=== PATIENT | male | born 1975 | race Caucasian/White ===

== ENCOUNTER → 2016-11-10 | Outpatient (CLI) | payer BC ==
[2016-11-10 10:05] LABS: CHCM 34.4; HCT 43.1 % (39.0-53.0); HDW 2.71; HGB 14.6 gm/dL (13.0-17.5); MCH 32.6 pg (25.0-35.0); MCHC 33.8 g/dL (31.0-37.0); MCV 96.5 fL (80.0-100.0); RBC 4.47 m/uL (4.30-5.90); RDW 13.2 % (11.5-15.5); WBC 7.2 k/uL (3.8-10.6)
[2016-11-10 10:17] LABS: ALT 53 U/L (21-72); AST 27 U/L (17-59); Alkaline Phosphatase 69 U/L (38-126); Anion Gap 10 mmol/L; Blood Urea Nitrogen 14 mg/dL (9-20); Calcium 9.2 mg/dL (8.4-10.2); Carbon Dioxide 26 mmol/L (22-30); Chloride 110 mmol/L (98-107); Cholesterol 154 mg/dL (<200); Glucose 101 mg/dL (74-99); HDL Cholesterol 34 mg/dL (40-60); Non-African American GFR(MDRD) >60 (>60 ml/min/1.73 sqM); Potassium 4.7 mmol/L (3.5-5.1); Sodium 146 mmol/L (137-145); Total Bilirubin 0.5 mg/dL (0.2-1.3); Total Protein 7.4 g/dL (6.3-8.2); Triglycerides 173 mg/dL (<150)
== END | disposition home or self-care (01) ==
LOC: LABWHC1 09:43
PROVIDERS: ATTEND Family Medicine
DX: E78.2 Mixed hyperlipidemia (principal); I10 Essential (primary) hypertension
CPT/HCPCS: 36415; 80053; 80061; 85027

== ENCOUNTER 2019-03-29 10:24 | Emergency (ER) | payer BC ==
[2019-03-29 10:33] VITALS: RESP 18
--- NOTE | 2019-03-29 10:48 | ED ---
Head Injury HPI - General Chief complaint: Head Injury Stated complaint: HEAD INJURY, HIT WITH BASEBALL Time Seen by Provider: 03/29/19 10:34 Source: patient, RN notes reviewed Mode of arrival: ambulatory Limitations: no limitations - History of Present Illness Initial comments: 43-year-old male presents emergency Department with chief complaint of left sided head injury. Patient states that he was pitching softball states that he took a line drive back into his left ear. Patient states that he does have some moderate discomfort to the ER and there was some noted bleeding from a laceration. Patient states that he has a mild headache denies any dizziness, nausea, vomiting, blurred vision. 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 Patient has any focal weakness. Denies any chest or shortness breath. - Related Data Allergies/Adverse reactions: Allergies Allergy/AdvReac Type Severity Reaction Status Date / Time No Known Allergies Allergy Verified 03/29/19 10:33 Review of Systems ROS Statement: Those systems with pertinent positive or pertinent negative responses have been documented in the HPI. ROS Other: All systems not noted in ROS Statement are negative. Past Medical History Past Medical History: Hyperlipidemia, Hypertension History of Any Multi-Drug Resistant Organisms: None Reported Past Surgical History: Orthopedic Surgery Additional Past Surgical History / Comment(s): eye surgery Past Psychological History: No Psychological Hx Reported Smoking Status: Never smoker Past Alcohol Use History: Occasional Past Drug Use History: None Reported General Exam Limitations: no limitations General appearance: alert, in no apparent distress Head exam: Present: atraumatic, normocephalic, normal inspection Eye exam: Present: normal appearance, PERRL, EOMI. Absent: scleral icterus, conjunctival injection, periorbital swelling ENT exam: Present: normal oropharynx, mucous membranes moist, other (No mastoid tenderness no bony tenderness in the pre-recurrent region). Absent: normal exam (Swelling to the left ear noted, small superficial laceration. There is no extensive hematoma to left ear) Neck exam: Present: normal inspection, full ROM. Absent: tenderness, meningismus, lymphadenopathy Respiratory exam: Present: normal lung sounds bilaterally. Absent: respiratory distress, wheezes, rales, rhonchi, stridor Cardiovascular Exam: Present: regular rate, normal rhythm, normal heart sounds. Absent: systolic murmur, diastolic murmur, rubs, gallop, clicks Neurological exam: Present: alert, oriented X3, CN II-XII intact, reflexes normal. Absent: motor sensory deficit Skin exam: Present: warm, dry, intact, normal color. Absent: rash Course Vital Signs 03/29/19 10:30 Temperature 99.0 F Pulse Rate 114 H Respiratory 18 Rate Blood Pressure 159/92 O2 Sat by Pulse 99 Oximetry Medical Decision Making - Medical Decision Making 43-year-old male presented from for left ear, head injury. CT was obtained no acute abnormality and the left side. He does have a defect in the right scleral region which is from old injury. Patient tetanus is updated. Patient we discharged and return parameters were discussed. Disposition Clinical Impression: Laceration of left ear, Head injury Disposition: HOME SELF-CARE Condition: Stable Instructions (If sedation given, give patient instructions): Head Injury (ED) Additional Instructions: Please return to the Emergency Department if symptoms worsen or any other concerns. Is patient prescribed a controlled substance at d/c from ED?: No Referrals: Roberto Decker MD [Primary Care Provider] - 1-2 days Time of Disposition: 12:09
[2019-03-29] MEDS ORDERED: DIPH,PERTUS(ACELL)TETVAC-LF 0.5 ML VIAL IM ONE (10:49)
--- NOTE | 2019-03-29 12:00 | CT ---
EXAMINATION TYPE: CT brain wo con DATE OF EXAM: 03/29/2019 COMPARISON: NONE HISTORY: Head injurym, hit with baseball in right ear CT DLP: 1071.4 mGycm Automated exposure control for dose reduction was used. FINDINGS: Central structures are midline. There is no evidence of hydrocephalus. No acute focal lesion, mass ef fect or midline shift is seen. The right orbit is abnormal. There is a radiopaque foreign body. I do not see a normal lens. There ap pears to be a defect in the sclera anteriorly. There is no retroconal or intraconal abnormality. Visualized portions of the paranasal sinuses and mastoids are clear. IMPRESSION: 1. NO ACUTE INTRACRANIAL ABNORMALITY. 2. ABNORMAL APPEARANCE OF THE RIGHT ORBIT WITH A DEFECT IN THE SCLERA AND RADIOPAQUE BODY WITHIN THE GLOBE. THE NORMAL LENS IS NOT VISUALIZED. DIRECT VISUALIZATION IS SUGGESTED.
[2019-03-29 12:21] VITALS: BP 119/91; PULSE 100; TEMP 98.5
== END 2019-03-29 12:21 | disposition home or self-care (01) ==
LOC: EC 10:24
DX: S01.312A Laceration without foreign body of left ear, initial encounter (principal); S09.90XA Unspecified injury of head, initial encounter; H54.61 Unqualified visual loss, right eye, normal vision left eye; Z23 Encounter for immunization; W21.03XA Struck by baseball, initial encounter; Y93.89 Activity, other specified; Y92.89 Other specified places as the place of occurrence of the external cause
CPT/HCPCS: 70450; 90471; 90715; 99283

== ENCOUNTER 2020-09-19 16:34 | Inpatient (IN) | payer BC ==
[2020-09-19] MEDS ORDERED: LORazepam 2 MG/ML INJ IV STA (17:23)
[2020-09-19] MEDS ORDERED: ASPIRIN 81 MG PO STA (17:23)
[2020-09-19] MEDS ORDERED: SODIUM CHLORIDE 0.9% 1,000 ML IV STA (17:23)
--- NOTE | 2020-09-19 17:27 | ED ---
General Adult HPI - General Chief complaint: Neuro Symptoms/Deficit Stated complaint: hypertensive, arm numbness Time Seen by Provider: 09/19/20 17:12 Source: patient Mode of arrival: ambulatory Limitations: no limitations - History of Present Illness Initial comments: 45-year-old male patient presents to the emergency department today for evaluation of multiple symptoms. Patient states since Sunday he has been experiencing numbness across his chest down his bilateral arms. States he also feels like his tongue is numb and he has lost his taste. Patient states his blood pressures have been very elevated and his heart rate has been high. States he did go to the walk-in clinic on Sunday where they did an EKG and told that his heart was fast the day thought it may be due to anxiety. He was sent home from there. Patient states that he has had persistently high blood pressures throughout the weekend. States he feels that the numbness is wors ening. He denies any chest pain but states he is having some mid upper back pain. Denies any shortness of breath. Denies weakness to his extremities. Denies any recent head injury. States he did try taking an Ativan because he hasn't been sleeping it did not help. States he did test positive for COVID-19 6 weeks ago and had very mild illness with fevers. Patient denies any recent cough, abdominal pain, vomiting, diarrhea, constipation, back pain, numbness, tingling, dizziness, hematuria, dysuria, urinary urgency, urinary frequency, headache, visual changes, or any other complaints. - Related Data Home Medications Medication Instructions Recorded Confirmed Enalapril [Vasotec] 10 mg PO BID 09/19/20 09/19/20 Ketoconazole 2% Cream [Nizoral 2%] 1 applic TOPICAL DAILY 09/19/20 09/19/20 LORazepam [Ativan] 0.5 - 1 mg PO TID PRN 09/19/20 09/19/20 Multivitamins, Thera [Multivitamin 1 tab PO DAILY 09/19/20 09/19/20 (formulary)] Simvastatin [Zocor] 20 mg PO HS 09/19/20 09/19/20 Allergies Allergy/AdvReac Type Severity Reaction Status Date / Time No Known Allergies Allergy Verified 09/19/20 18:33 Review of Systems ROS Statement: Those systems with pertinent positive or pertinent negative responses have been documented in the HPI. ROS Other: All systems not noted in ROS Statement are negative. Past Medical History Past Medical History: Hyperlipidemia, Hypertension History of Any Multi-Drug Resistant Organisms: None Reported Past Surgical History: Orthopedic Surgery Additional Past Surgical History / Comment(s): eye surgery Past Psychological History: No Psychological Hx Reported Smoking Status: Former smoker Past Alcohol Use History: Occasional Past Drug Use History: None Reported General Exam Limitations: no limitations General appearance: alert, in no apparent distress, other (This is a well- developed, well-nourished adult male patient in no acute distress. Vital signs upon presentation are temperature 98.0F, pulse 142, respirations 18, blood pressure 160/94, pulse ox 98% on room air.) Eye exam: Present: normal appearance, PERRL (Left eye. There is traumatic injury to right eye), EOMI. Absent: scleral icterus, conjunctival injection, nystagmus, periorbital swelling Respiratory exam: Present: normal lung sounds bilaterally. Absent: respiratory distress, wheezes, rales, rhonchi, stridor Cardiovascular Exam: Present: normal rhythm, tachycardia, normal heart sounds. Absent: systolic murmur, diastolic murmur, rubs, gallop, clicks GI/Abdominal exam: Present: soft, normal bowel sounds. Absent: distended, tenderness, guarding, rebound, rigid Neurological exam: Present: alert, oriented X3, CN II-XII intact Expanded Speech: Present: fluid speech Cranial nerves: EOM's Intact: Normal, Tongue Deviation: Normal, Nystagmus: Normal Motor strength exam: RUE: 5, LUE: 5, RLE: 5, LLE: 5 Psychiatric exam: Present: normal affect Skin exam: Present: warm Course Vital Signs 09/19/20 09/19/20 09/19/20 16:39 17:06 17:30 Temperature 98 F Pulse Rate 142 H 120 H Pulse Rate [ Communications Technologist ] Respiratory 18 16 16 Rate Blood Pressure 160/94 165/111 O2 Sat by Pulse 98 95 Oximetry 09/19/20 09/19/20 09/19/20 18:00 18:30 18:59 Temperature Pulse Rate 123 H 114 H Pulse Rate [ 124 H Communications Technologist ] Respiratory 16 16 Rate Blood Pressure 156/105 157/111 O2 Sat by Pulse 95 95 Oximetry Medical Decision Making - Medical Decision Making 45 year-old male patient presented to the emergency department today for evaluation of paresthesia, elevated blood pressure, tachycardia. Physical examination is unremarkable. He is neurologically intact with no focal deficits. Labs reviewed and are unremarkable. Patient did have coronavirus 6 weeks ago did test negative today. Vital signs did reveal elevated blood pressure and tachycardia sustained throughout his visit. We did give Ativan for possible anxiety, and heart rate remained elevated even while patient was sleeping. Patient will be admitted to the hospital for cardiac monitoring we will also perform echo in the morning and consult cardiology. Patient is agreeable to this plan. - Lab Data Result diagrams: 09/19/20 17:36 09/19/20 17:36 Lab Results 09/19/20 09/19/20 09/19/20 Range/Units 17:36 17:36 17:36 WBC 9.9 (3.8-10.6) k/uL RBC 5.27 (4.30-5.90) m/uL Hgb 17.2 (13.0-17.5) gm/dL Hct 49.8 (39.0-53.0) % MCV 94.5 (80.0-100.0) fL MCH 32.6 (25.0-35.0) pg MCHC 34.5 (31.0-37.0) g/dL RDW 12.4 (11.5-15.5) % Plt Count 283 (150-450) k/uL MPV 6.8 Neutrophils % 59 % Lymphocytes % 31 % Monocytes % 5 % Eosinophils % 1 % Basophils % 0 % Neutrophils # 5.8 (1.3-7.7) k/uL Lymphocytes # 3.1 (1.0-4.8) k/uL Monocytes # 0.5 (0-1.0) k/uL Eosinophils # 0.1 (0-0.7) k/uL Basophils # 0.0 (0-0.2) k/uL PT 10.0 (9.0-12.0) sec INR 1.0 (<1.2) APTT 23.2 (22.0-30.0) sec D-Dimer <0.17 (<0.60) mg/L FEU Sodium 139 (137-145) mmol/L Potassium 4.1 (3.5-5.1) mmol/L Chloride 106 (98-107) mmol/L Carbon Dioxide 20 L (22-30) mmol/L Anion Gap 13 mmol/L BUN 18 (9-20) mg/dL Creatinine 0.93 (0.66-1.25) mg/dL Est GFR (CKD-EPI)AfAm >90 (>60 ml/min/1.73 sqM) Est GFR (CKD-EPI)NonAf >90 (>60 ml/min/1.73 sqM) Glucose 136 H (74-99) mg/dL Calcium 10.0 (8.4-10.2) mg/dL Magnesium 2.0 (1.6-2.3) mg/dL Total Bilirubin 0.7 (0.2-1.3) mg/dL AST 36 (17-59) U/L ALT 41 (4-49) U/L Alkaline Phosphatase 53 (38-126) U/L Troponin I (0.000-0.034) ng/mL Total Protein 8.7 H (6.3-8.2) g/dL Albumin 5.0 (3.5-5.0) g/dL TSH (0.465-4.680) mIU/L Coronavirus (PCR) (Not Detectd) 09/19/20 09/19/20 09/19/20 Range/Units 17:36 17:36 17:36 WBC (3.8-10.6) k/uL RBC (4.30-5.90) m/uL Hgb (13.0-17.5) gm/dL Hct (39.0-53.0) % MCV (80.0-100.0) fL MCH (25.0-35.0) pg MCHC (31.0-37.0) g/dL RDW (11.5-15.5) % Plt Count (150-450) k/uL MPV Neutrophils % % Lymphocytes % % Monocytes % % Eosinophils % % Basophils % % Neutrophils # (1.3-7.7) k/uL Lymphocytes # (1.0-4.8) k/uL Monocytes # (0-1.0) k/uL Eosinophils # (0-0.7) k/uL Basophils # (0-0.2) k/uL PT (9.0-12.0) sec INR (<1.2) APTT (22.0-30.0) sec D-Dimer (<0.60) mg/L FEU Sodium (137-145) mmol/L Potassium (3.5-5.1) mmol/L Chloride (98-107) mmol/L Carbon Dioxide (22-30) mmol/L Anion Gap mmol/L BUN (9-20) mg/dL Creatinine (0.66-1.25) mg/dL Est GFR (CKD-EPI)AfAm (>60 ml/min/1.73 sqM) Est GFR (CKD-EPI)NonAf (>60 ml/min/1.73 sqM) Glucose (74-99) mg/dL Calcium (8.4-10.2) mg/dL Magnesium (1.6-2.3) mg/dL Total Bilirubin (0.2-1.3) mg/dL AST (17-59) U/L ALT (4-49) U/L Alkaline Phosphatase (38-126) U/L Troponin I <0.012 (0.000-0.034) ng/mL Total Protein (6.3-8.2) g/dL Albumin (3.5-5.0) g/dL TSH 3.710 (0.465-4.680) mIU/L Coronavirus (PCR) Not Detected (Not Detectd) - Radiology Data Radiology results: report reviewed, image reviewed 2 view xray of the chest was obtained. Report was reviewed in its entirety. Impression by Dr. Whitman shows normal chest. Normal heart. Disposition Clinical Impression: Tachycardia Disposition: ADMITTED IP TO THIS [facility] Condition: Serious Referrals: Roberto Decker MD [Primary Care Provider] - 1-2 days Decision to Admit Reason: Admit from EC Decision Date: 09/19/20 Decision Time: 19:24
[2020-09-19 17:52] LABS: Basophils % (A) 0 %; Eosinophils # (A) 0.1 k/uL (0-0.7); Eosinophils % (A) 1 %; HCT 49.8 % (39.0-53.0); HGB 17.2 gm/dL (13.0-17.5); Lymphocytes # (A) 3.1 k/uL (1.0-4.8); Lymphocytes % (A) 31 %; MCH 32.6 pg (25.0-35.0); MCHC 34.5 g/dL (31.0-37.0); MCV 94.5 fL (80.0-100.0); Mean Platelet Volume 6.8; Monocytes # (A) 0.5 k/uL (0-1.0); Monocytes % (A) 5 %; Neutrophils # (A) 5.8 k/uL (1.3-7.7); Neutrophils % (A) 59 %; Platelet Count 283 k/uL (150-450); RBC 5.27 m/uL (4.30-5.90); RDW 12.4 % (11.5-15.5); WBC 9.9 k/uL (3.8-10.6)
--- NOTE | 2020-09-19 17:57 | XR ---
EXAMINATION TYPE: XR chest 2V DATE OF EXAM: 09/19/2020 COMPARISON: NONE HISTORY: Chest pain TECHNIQUE: 2 views FINDINGS: Heart and mediastinum are normal. Lungs are clear. Diaphragm is normal. Bony thorax appears normal. IMPRESSION: Normal chest. Normal heart.
[2020-09-19 18:01] LABS: ALT 41 U/L (4-49); AST 36 U/L (17-59); African American GFR (CKD) >90 (>60 ml/min/1.73 sqM); Alkaline Phosphatase 53 U/L (38-126); Anion Gap 13 mmol/L; Blood Urea Nitrogen 18 mg/dL (9-20); Carbon Dioxide 20 mmol/L (22-30); Chloride 106 mmol/L (98-107); Glucose 136 mg/dL (74-99); Non-African American GFR(CKD) >90 (>60 ml/min/1.73 sqM); Potassium 4.1 mmol/L (3.5-5.1); Sodium 139 mmol/L (137-145); Total Bilirubin 0.7 mg/dL (0.2-1.3); Total Protein 8.7 g/dL (6.3-8.2)
[2020-09-19 18:06] LABS: D-Dimer <0.17 mg/L FEU (<0.60); Partial Thromboplastin Time 23.2 sec (22.0-30.0)
[2020-09-19] MEDS ORDERED: LORazepam 1 MG TAB PO PRN (19:22)
[2020-09-19] MEDS ORDERED: NALOXONE 0.4 MG/ML 1 ML VIAL IV PRN (19:22)
[2020-09-19] MEDS: ACETAMINOPHEN TAB 325 MG TAB PO PRN (21:39)
[2020-09-20] MEDS: SODIUM CHLORIDE 0.9% 1,000 ML IV SCH ×2 (01:33→09:27)
[2020-09-20] MEDS ORDERED: ASPIRIN 325 MG TAB PO SCH (09:00)
[2020-09-20] MEDS ORDERED: amLODIPine 5 MG TAB PO SCH (09:00)
[2020-09-20] MEDS: lisinopriL 20 MG TAB PO SCH ×2 (09:21→21:42)
[2020-09-20] MEDS: ACETAMINOPHEN TAB 325 MG TAB PO PRN (09:27)
[2020-09-20] MEDS: ASPIRIN 81 MG PO SCH (09:27)
[2020-09-20] MEDS: METOPROLOL TARTRATE 25 MG TAB PO SCH ×2 (09:27→21:42)
--- NOTE | 2020-09-20 10:08 | P.CRDCN ---
<Vaishali Solorio - Last Filed: 09/20/20 10:04> History of Present Illness Consult date: 09/20/20 History of present illness: CHIEF COMPLAINT: Tachycardia HISTORY OF PRESENT ILLNESS: This is a 45-year old male with a past medical history significant for hypertension and hyperlipidemia. 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 We have been asked to see the patient in consultation for tachycardia. Patient examined this morning at the bedside in the emergency room. Patient reports he was diagnosed with covert about 6 weeks ago. He states over the past week he has been feeling bilateral leg heaviness, bilateral arm numbness, and a loss of sense of taste. He also reports having a rash on his chest that started about 10 days ago. The patient went to urgent care to be evaluated. He was told that he might have shingles however he was not prescribed any treatment for it. An EKG was completed at the urgent care which revealed sinus tachycardia. He was told this might be related to his anxiety and he was prescribed antianxiety medications. The patient states since going to urgent care he has been checking his blood pressure and heart rate at home. He states his blood pressure has been elevated with a systolic in the 160s and his heart rate has continued to be over 100 and sometimes even into the 140s despite taking the anxiety medications so he decided to come to the emergency room for further evaluation. At the time of my exam this morning, the patient denies chest pain or pressure. He denies shortness of breath. He continues to report bilateral arm numbness. He denies feeling palpitations. DIAGNOSTICS: EKG reveals sinus tachycardia. No signs of acute ischemia Chest xray negative for acute process Laboratory data: W BC 9.9. Hemoglobin 17.2. Platelet count 283. D-dimer 0.17. Sodium 139. Potassium 4.1. BUN 18. Creatinine 0.93. Magnesium 2.0. Troponin negative 1. TSH 3.710. Current home cardiac medications include Zocor 20 mg daily and Vasotec 10 mg twice a day REVIEW OF SYSTEMS: At the time of my exam: CONSTITUTIONAL: Denies fever or chills. HEENT: Denies blurred vision, vision changes, or eye pain. Denies hemoptysis CARDIOVASCULAR: Denies chest pain, orthopnea, PND or palpitations RESPIRATORY: No shortness of breath. GASTROINTESTINAL: Denies abdominal pain. Denies nausea or vomiting. HEMATOLOGIC: Denies bleeding disorders. GENITOURINARY: Denies any blood in urine. SKIN: Denies pruitis. Denies rash. PHYSICAL EXAM: VITAL SIGNS: Reviewed. GENERAL: Well-developed in no acute distress. HEENT: Head is normocephalic. Pupils are equal, round. Sclerae anicteric. Mucous membranes of the mouth are moist. Neck supple. No JVD or thyromegaly LUNGS: Respirations even and unlabored. Lungs essentially clear to auscultation bilaterally. HEART: Regular rate and rhythm. S1 and S2 heard. ABDOMEN: Soft. Nondistended. Nontender. EXTREMITIES: Normal range of motion. No clubbing or cyanosis. Peripheral pulses intact. No lower extremity edema NEUROLOGIC: Awake and alert. Oriented x 3. ASSESSMENT: Tachycardia Hypertension, uncontrolled Hyperlipidemia Possible recent diagnosis of shingles Symptoms of bilateral arm numbness and bilateral leg heaviness Anxiety History of coronavirus, 6 weeks ago PLAN: Resume home cardiac medications Begin metoprolol 25 mg twice a day Begin Norvasc 5 mg daily Continue telemetry monitoring Continue to monitor blood pressure Obtain 2-D echo to assess cardiac structure and function Further recommendations pending patient's course Nurse practitioner note has been reviewed by physician. Signing provider agrees with the documented findings, assessment, and plan of care. Past Medical History Past Medical History: Hyperlipidemia, Hypertension History of Any Multi-Drug Resistant Organisms: None Reported Past Surgical History: Orthopedic Surgery Additional Past Surgical History / Comment(s): eye surgery Past Psychological History: No Psychological Hx Reported Smoking Status: Former smoker Past Alcohol Use History: Occasional Past Drug Use History: None Reported Medications and Allergies Home Medications Medication Instructions Recorded Confirmed Type Enalapril [Vasotec] 10 mg PO BID 09/19/20 09/19/20 History Ketoconazole 2% Cream [Nizoral 2%] 1 applic TOPICAL DAILY 09/19/20 09/19/20 History LORazepam [Ativan] 0.5 - 1 mg PO TID PRN 09/19/20 09/19/20 History Multivitamins, Thera [Multivitamin 1 tab PO DAILY 09/19/20 09/19/20 History (formulary)] Simvastatin [Zocor] 20 mg PO HS 09/19/20 09/19/20 History Allergies Allergy/AdvReac Type Severity Reaction Status Date / Time No Known Allergies Allergy Verified 09/19/20 18:33 Physical Exam Vitals: Vital Signs Temp Pulse Pulse Resp BP Pulse Ox 09/20/20 06:51 97.4 F L 104 H 18 164/119 98 09/20/20 05:24 89 18 09/20/20 01:40 97.0 F L 101 H 18 151/115 97 09/19/20 23:30 108 H 18 152/106 98 09/19/20 20:00 115 H 18 157/126 97 09/19/20 19:30 125 H 16 159/106 95 09/19/20 19:00 120 H 16 151/102 97 09/19/20 18:59 124 H 09/19/20 18:30 114 H 16 157/111 95 09/19/20 18:00 123 H 16 156/105 95 09/19/20 17:30 120 H 16 165/111 95 09/19/20 17:06 16 09/19/20 16:39 98 F 142 H 18 160/94 98 Intake and Output 09/19/20 09/20/20 09/20/20 22:59 06:59 14:59 Other: Weight 96.162 kg Results 09/19/20 17:36 09/19/20 17:36 Cardiac Enzymes 09/19/20 09/19/20 Range/Units 17:36 17:36 AST 36 (17-59) U/L Troponin I <0.012 (0.000-0.034) ng/mL Coagulation 09/19/20 Range/Units 17:36 PT 10.0 (9.0-12.0) sec APTT 23.2 (22.0-30.0) sec CBC 09/19/20 Range/Units 17:36 WBC 9.9 (3.8-10.6) k/uL RBC 5.27 (4.30-5.90) m/uL Hgb 17.2 (13.0-17.5) gm/dL Hct 49.8 (39.0-53.0) % Plt Count 283 (150-450) k/uL Comprehensive Metabolic Panel 09/19/20 Range/Units 17:36 Sodium 139 (137-145) mmol/L Potassium 4.1 (3.5-5.1) mmol/L Chloride 106 (98-107) mmol/L Carbon Dioxide 20 L (22-30) mmol/L BUN 18 (9-20) mg/dL Creatinine 0.93 (0.66-1.25) mg/dL Glucose 136 H (74-99) mg/dL Calcium 10.0 (8.4-10.2) mg/dL AST 36 (17-59) U/L ALT 41 (4-49) U/L Alkaline Phosphatase 53 (38-126) U/L Total Protein 8.7 H (6.3-8.2) g/dL Albumin 5.0 (3.5-5.0) g/dL Current Medications Generic Name Dose Route Start Last Admin Trade Name Freq PRN Reason Stop Dose Admin Acetaminophen 650 mg 09/19/20 21:33 09/20/20 09:27 Acetaminophen Tab 325 Mg Tab PO 650 mg Q6HR PRN Administration Fever and/ or Pain Amlodipine Besylate 5 mg 09/20/20 09:00 09/20/20 09:27 Amlodipine 5 Mg Tab PO 5 mg DAILY NATHAN Administration Aspirin 81 mg 09/20/20 09:00 09/20/20 09:27 Aspirin 81 Mg PO 81 mg DAILY NATHAN Administration Atorvastatin Calcium 10 mg 09/20/20 21:00 Atorvastatin 10 Mg Tab PO HS NATHAN Sodium Chloride 1,000 mls @ 80 mls/hr 09/19/20 19:30 09/20/20 09:27 Saline 0.9% IV 80 mls/hr .[id number] NATHAN Administration Lisinopril 20 mg 09/20/20 09:00 09/20/20 09:21 Lisinopril 20 Mg Tab PO 20 mg BID NATHAN Administration Lorazepam 1 mg 09/19/20 19:22 09/20/20 01:32 Lorazepam 1 Mg Tab PO 1 mg Q6HR PRN Administration Anxiety Metoprolol Tartrate 25 mg 09/20/20 09:00 09/20/20 09:27 Metoprolol Tartrate 25 Mg Tab PO 25 mg BID NATHAN Administration Naloxone HCl 0.2 mg 09/19/20 19:22 Naloxone 0.4 Mg/Ml 1 Ml Vial IV Q2M PRN Opioid Reversal Intake and Output 09/19/20 09/20/20 09/20/20 22:59 06:59 14:59 Other: Weight 96.162 kg 09/19/20 17:36 09/19/20 17:36 <Khai Loza - Last Filed: 09/20/20 17:41> History of Present Illness History of present illness: Patient was sinus tachycardia as well as hypertension over last few weeks. Suspect mainly related to pain and anxiety. Patient has been having back pain with bilateral numbness and tingling in both arms and legs. Additional recent diagnosis of coronavirus approximately 6 weeks ago. Symptoms may be related to a herniated disc. Patient on home enalapril. Added metoprolol and Norvasc. 2- D echo reviewed with normal left ventricular function. D-dimer noted to be normal. Hypertension likely is somewhat exacerbated by NSAIDs however patient additionally in a fair amount of back pain and has been unable to sleep. Ideally better control on blood pressure however blood pressure management may be titrated outpatient if diastolic pressure better controlled. Khai Loza D.O. Physical Exam Vitals: Vital Signs Temp Pulse Pulse Resp BP BP Pulse Ox 09/20/20 15:00 97.9 F 100 16 159/119 96 09/20/20 09:00 96.8 F L 114 H 16 157/110 97 09/20/20 06:51 97.4 F L 104 H 18 164/119 98 09/20/20 05:24 89 18 09/20/20 01:40 97.0 F L 101 H 18 151/115 97 09/19/20 23:30 108 H 18 152/106 98 09/19/20 20:00 115 H 18 157/126 97 09/19/20 19:30 125 H 16 159/106 95 09/19/20 19:00 120 H 16 151/102 97 09/19/20 18:59 124 H 09/19/20 18:30 114 H 16 157/111 95 09/19/20 18:00 123 H 16 156/105 95 Intake and Output 09/20/20 09/20/20 09/20/20 06:59 14:59 22:59 Other: # Voids 2 2 Weight 96.162 kg Results 09/19/20 17:36 09/19/20 17:36 Cardiac Enzymes 09/19/20 09/19/20 Range/Units 17:36 17:36 AST 36 (17-59) U/L Troponin I <0.012 (0.000-0.034) ng/mL Coagulation 09/19/20 Range/Units 17:36 PT 10.0 (9.0-12.0) sec APTT 23.2 (22.0-30.0) sec CBC 09/19/20 Range/Units 17:36 WBC 9.9 (3.8-10.6) k/uL RBC 5.27 (4.30-5.90) m/uL Hgb 17.2 (13.0-17.5) gm/dL Hct 49.8 (39.0-53.0) % Plt Count 283 (150-450) k/uL Comprehensive Metabolic Panel 09/19/20 Range/Units 17:36 Sodium 139 (137-145) mmol/L Potassium 4.1 (3.5-5.1) mmol/L Chloride 106 (98-107) mmol/L Carbon Dioxide 20 L (22-30) mmol/L BUN 18 (9-20) mg/dL Creatinine 0.93 (0.66-1.25) mg/dL Glucose 136 H (74-99) mg/dL Calcium 10.0 (8.4-10.2) mg/dL AST 36 (17-59) U/L ALT 41 (4-49) U/L Alkaline Phosphatase 53 (38-126) U/L Total Protein 8.7 H (6.3-8.2) g/dL Albumin 5.0 (3.5-5.0) g/dL Current Medications Generic Name Dose Route Start Last Admin Trade Name Freq PRN Reason Stop Dose Admin Acetaminophen 650 mg 09/19/20 21:33 09/20/20 09:27 Acetaminophen Tab 325 Mg Tab PO 650 mg Q6HR PRN Administration Fever and/ or Pain Amlodipine Besylate 10 mg 09/21/20 09:00 Amlodipine 10 Mg Tab PO DAILY [facility] Aspirin 81 mg 09/20/20 09:00 09/20/20 09:27 Aspirin 81 Mg PO 81 mg DAILY NATHAN Administration Atorvastatin Calcium 10 mg 09/20/20 21:00 Atorvastatin 10 Mg Tab PO HS [facility] Clotrimazole 1 applic 09/21/20 09:00 Clotrimazole 1% Cream 15 Gm Tube TOPICAL DAILY [facility] Sodium Chloride 1,000 mls @ 80 mls/hr 09/19/20 19:30 09/20/20 09:27 Saline 0.9% IV 80 mls/hr .[id number] NATHAN Administration Lisinopril 20 mg 09/20/20 09:00 09/20/20 09:21 Lisinopril 20 Mg Tab PO 20 mg BID NATHAN Administration Lorazepam 1 mg 09/19/20 19:22 09/20/20 01:32 Lorazepam 1 Mg Tab PO 1 mg Q6HR PRN Administration Anxiety Metoprolol Tartrate 25 mg 09/20/20 09:00 09/20/20 09:27 Metoprolol Tartrate 25 Mg Tab PO 25 mg BID NATHAN Administration Multivitamins 1 each 09/21/20 09:00 Multivitamins, Thera 1 Each Tab PO DAILY NATHAN Naloxone HCl 0.2 mg 09/19/20 19:22 Naloxone 0.4 Mg/Ml 1 Ml Vial IV Q2M PRN Opioid Reversal Intake and Output 09/20/20 09/20/20 09/20/20 06:59 14:59 22:59 Other: # Voids 2 2 Weight 96.162 kg Patient Weight 09/21/20 06:59 Weight 96.162 kg 09/19/20 17:36 09/19/20 17:36
--- NOTE | 2020-09-20 11:53 | ECHOF ---
Referral Reason:tachycardia MEASUREMENTS -------- HEIGHT: 170.2 cm WEIGHT: 96.2 kg BP: 164/119 RVIDd: 2.8 cm (< 3.3) IVSd: 1.0 cm (0.6 - 1.1) LVIDd: 3.0 cm (3.9 - 5.3) LVPWd: 1.1 cm (0.6 - 1.1) IVSs: 1.7 cm LVIDs: 1.9 cm LVPWs: 1.6 cm LA Diam: 3.1 cm (2.7 - 3.8) LAESV Index (A-L): 15.11 ml/m Ao Diam: 2.9 cm (2.0 - 3.7) AV Cusp: 2.2 cm (1.5 - 2.6) MV EXCURSION: 12.690 mm (> 18.000) MV EF SLOPE: 199 mm/s (70 - 150) EPSS: 0.2 cm HUDSON: 452 ms AVC: 337 ms MV E Butch: 0.90 m/s MV DecT: 117 ms MV A Butch: 0.93 m/s MV E/A Ratio: 0.97 FINDINGS -------- Resting tachycardia (HR>100bpm). This was a technically adequate study. The left ventricular size is normal. There is borderline concentric left ventricular hypertrophy. Overall left ventricular systolic function is normal with, an EF between 60 - 65 %. The right ventricle is normal in size. Normal LA size by volume 22+/-6 ml/m2. The right atrium is normal in size. The aortic valve is trileaflet and appears structurally normal. The mitral valve is normal. The tricuspid valve appears structurally normal. Trace/mild (physiologic) pulmonic regurgitation. The aortic root size is normal. Normal inferior vena cava with normal inspiratory collapse consistent with estimated right atrial pre ssure of 5 mmHg. There is no pericardial effusion. CONCLUSIONS -------- 1. The left ventricular size is normal. 2. There is borderline concentric left ventricular hypertrophy. 3. Overall left ventricular systolic function is normal with, an EF between 60 - 65 %. 4. Trace/mild (physiologic) pulmonic regurgitation. MANAGER REPORTING: Dorina Mcgregor RDCS
--- NOTE | 2020-09-20 15:38 | XR ---
EXAMINATION TYPE: XR cervical spine w flex/ext DATE OF EXAM: 09/20/2020 COMPARISON: NONE HISTORY: 45-year-old male weakness in the arms and legs TECHNIQUE: 7 views FINDINGS: No predental space widening or prevertebral soft tissue swelling. Preserved alignment of the cervical spine. Moderate degenerative disc disease C5-C7 levels. Multilevel facet and uncovertebral joint art hropathy. On the left, there is moderate bony neuroforaminal narrowing at C5-C6 and mild at C3-C4. On the right, there is moderate bony neuroforaminal narrowing at C3-C4. Mild C7-T1. Normal odontoid view. On flexion and extension, no dynamic subluxation is seen. IMPRESSION: Moderate spondylotic change with preserved alignment. No dynamic subluxation on flexion-extension chito adam
--- NOTE | 2020-09-20 15:40 | XR ---
EXAMINATION TYPE: XR thoracic spine 3 views DATE OF EXAM: 09/20/2020 COMPARISON: NONE HISTORY: 45-year-old male weakness in the arms and legs FINDINGS: Very gentle levoconvex curvature of the thoracic spine. 11 rib-bearing thoracic vertebral bodies. All pedicles are visualized. Mild degenerative disc disease thoracolumbar junction and upper lumbar spin e. Vertebral body heights are preserved. Alignment is maintained. IMPRESSION: 11 rib-bearing thoracic vertebral bodies counted. Mild degenerative disc disease thoracolumbar juncti on and upper lumbar spine. No vertebral compression collapse or malalignment.
[2020-09-20] MEDS ORDERED: amLODIPine 5 MG TAB PO STA (16:57)
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
[2020-09-20] MEDS: ATORVASTATIN 10 MG TAB PO SCH (21:42)
[2020-09-20] MEDS: valACYclovir HCL 1,000 MG TABLET PO SCH (21:42)
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
[2020-09-21 05:49] LABS: Hemoglobin A1C 6.7 % (4.0-6.0)
[2020-09-21 07:21] LABS: Folate, Serum >24.0 ng/mL
[2020-09-21] MEDS: valACYclovir HCL 1,000 MG TABLET PO SCH ×3 (09:05→21:37)
[2020-09-21] MEDS: METOPROLOL TARTRATE 25 MG TAB PO SCH ×3 (09:05→21:37)
[2020-09-21] MEDS: MULTIVITAMINS, THERA 1 EACH TAB PO SCH (09:05)
[2020-09-21] MEDS: ASPIRIN 81 MG PO SCH (09:05)
[2020-09-21] MEDS: lisinopriL 20 MG TAB PO SCH ×2 (09:05→21:37)
[2020-09-21] MEDS: amLODIPine 10 MG TAB PO SCH (09:05)
[2020-09-21] MEDS: CLOTRIMAZOLE 1% CREAM 15 GM TUBE TOPICAL SCH (09:05)
--- NOTE | 2020-09-21 11:58 | CT ---
EXAMINATION TYPE: CT cervical spine wo con DATE OF EXAM: 09/21/2020 COMPARISON: Cervical spine x-ray from yesterday HISTORY: Upper extremity radiculopathy for order. Weakness in arms and legs. CT DLP: 578.1 mGycm. Automated Exposure Control for Dose Reduction was Utilized. TECHNIQUE: CT scan of the cervical spine is obtained without contrast, axial images are obtained, sa gittal and coronal reformatted images are also reviewed. FINDINGS: Cervical spine is visualized in its entirety from C1 through upper thoracic levels, there i s redemonstration of slight grade 1 retrolisthesis C3 on C4 is slightly more prominent grade 1 retrol isthesis C5 on C6. Coronal images redemonstrate levoconvex scoliosis centered in the upper thoracic spine. Prevertebral soft tissue appears within normal limits. The C1-C2 articulation is within michael l limits on the coronal images. No acute fracture or dislocation is seen. Vertebral body heights are maintained. Moderate disc space narrowing with moderate anterior and posterior spurring C5-C6 level i s redemonstrated. Axial images at C2-C3 level shows a right paracentral/foraminal spur disc complex effacing anterolate ral thecal sac along with uncovertebral facet degenerative changes causing moderate right-sided neura l foraminal narrowing. Axial images at C3-C4 level show posterior right paracentral spur disc complex effacing anterolateral thecal sac along with bilateral uncovertebral facet degenerative changes causing mild bilateral neur al foraminal narrowing. Axial images at C4-C5 levels show more prominent left-sided uncovertebral facet degenerative changes causing moderate left-sided neural foraminal narrowing. Axial images at C5-C6 level shows spondylolisthesis with posterior spurring effacing the anterior the jessica sac and mild left greater than right bilateral neural foraminal narrowing due to uncovertebral an d facet spurring. Axial images at C6-C7 level and C7-T1 level are within normal limits. Thyroid gland is within normal limits. Lung apices show no pneumothorax. Few prominent but subcentime ter lymph nodes throughout the neck are incidentally noted. IMPRESSION: There is multilevel spondylolisthesis and degenerative changes in the cervical spine as d etailed above.
--- NOTE | 2020-09-21 14:05 | P.CON ---
Consult Note - . Consult date: 09/21/20 Assessment/Plan:: This is a 45-year-old gentleman with recent history ofcovid 19. The patient started to feel numbness in the anterior chest area on the left side and in both arms and also weakness in both legs as he states. The patient has mild upper b ack pain however his main complaint is numbness and weakness in the extremities and not really at the initial. By physical exam he is alert oriented 3 in no apparent distress. Muscle strength exam the upper and lower extremities is within normal limits. He has a healing rash on the left anterior chest area and crashing the groin area bilaterally however no vesicles or crusts are appreciated. The patient does not complain of pain really. If there is any mild pain in the upper back area ibuprofen would be good enough. The patient's main complaints are neurological: The patient will follow up with neurology service for that. I thank you for the consultation.
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
[2020-09-21] MEDS: IBUPROFEN 600 MG TAB PO PRN ×2 (16:18→21:43)
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
[2020-09-21] MEDS: ATORVASTATIN 10 MG TAB PO SCH (21:37)
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
[2020-09-22] MEDS: lisinopriL 20 MG TAB PO SCH ×2 (09:10→21:49)
[2020-09-22] MEDS: METOPROLOL TARTRATE 25 MG TAB PO SCH ×3 (09:10→21:49)
[2020-09-22] MEDS: amLODIPine 10 MG TAB PO SCH (09:10)
[2020-09-22] MEDS: MULTIVITAMINS, THERA 1 EACH TAB PO SCH (09:10)
[2020-09-22] MEDS: ASPIRIN 81 MG PO SCH (09:10)
[2020-09-22] MEDS: valACYclovir HCL 1,000 MG TABLET PO SCH ×3 (09:10→21:49)
[2020-09-22] MEDS: CLOTRIMAZOLE 1% CREAM 15 GM TUBE TOPICAL SCH (09:11)
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
--- NOTE | 2020-09-22 17:48 | MR ---
EXAMINATION TYPE: MR cervical spine wo/w con DATE OF EXAM: 09/22/2020 COMPARISON: None HISTORY: numbness and tingling in extremeties CONTRAST: Standard multiplanar, multisequence MRI departmental protocol utilizing 9.5 mL intravenous Gadavist g adolinium contrast. Cervical vertebra have normal alignment. Disc spaces are fairly well-maintained. There is small poste rior disc bulging at C5-6 and C6-7 without significant impingement on the spinal canal. The narrowest point of the spinal canal is C5-6 and measures 8.7 mm. Cervical spinal cord has normal signal patter n. There is no edema. Brainstem appears intact. There is no paraspinal mass. There is some uncoverteb ral spurring and neural foraminal impingement on the right side at C5-6. The contrast images show no pathologic enhancement. IMPRESSION: Mild posterior disc bulging at C5-6 and C6-7. Mild right side C5-6 neural foraminal impingement. No f racture. No spinal stenosis.
--- NOTE | 2020-09-22 17:52 | MR ---
EXAMINATION TYPE: MR brain wo con DATE OF EXAM: 09/22/2020 COMPARISON: None HISTORY: numbness and tingling in extremeties Multiplanar multiecho imaging of the brain was performed without contrast. Ventricles have normal size. There is no mass effect nor midline shift. There is no sign of intracran ial hemorrhage. The calvarium is intact. Brainstem is intact. There is no evidence of cortical infarc t. There is no evidence of posterior fossa mass. Corpus callosum appears normal. Optic chiasm appears normal. Gonsales-white matter structures have fairly normal signal pattern. There is no evidence of cere bral edema. IMPRESSION: Negative MR scan of the brain.
[2020-09-22] MEDS: ATORVASTATIN 10 MG TAB PO SCH (21:49)
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
[2020-09-23] MEDS: CLOTRIMAZOLE 1% CREAM 15 GM TUBE TOPICAL SCH (08:53)
[2020-09-23] MEDS: lisinopriL 20 MG TAB PO SCH ×2 (09:08→21:10)
[2020-09-23] MEDS: MULTIVITAMINS, THERA 1 EACH TAB PO SCH (09:08)
[2020-09-23] MEDS: METOPROLOL TARTRATE 25 MG TAB PO SCH ×3 (09:08→21:10)
[2020-09-23] MEDS: amLODIPine 10 MG TAB PO SCH (09:08)
[2020-09-23] MEDS: valACYclovir HCL 1,000 MG TABLET PO SCH ×3 (09:09→22:01)
[2020-09-23] MEDS: ASPIRIN 81 MG PO SCH (09:10)
[2020-09-23 11:45] LABS: Total Protein,CSF 270 mg/dL (12-60)
[2020-09-23 12:45] LABS: Appearance,CSF Clear; CSF Tube Number 2
[2020-09-23 12:47] LABS: Red Blood Cell,CSF 9 u/L (0-10)
[2020-09-23 12:48] LABS: Nucleated Cells, CSF 4 u/L (0-5)
--- NOTE | 2020-09-23 12:56 | FL ---
EXAMINATION TYPE: FL guided lumbar puncture LP DATE OF EXAM: 09/23/2020 CLINICAL HISTORY: Persistent weakness and numbness into extremities after recent covid infection. TECHNIQUE: Fluoroscopic assisted lumbar puncture for CSF. Total 3 minutes fluoroscopic time utilized. Single spot image is saved. COMPARISON: None. FINDINGS: Fluoroscopic guidance was provided during lumbar puncture procedure performed by myself. V ital signs monitored before during and after procedure. Procedure explained to patient. Benefits alte rnatives and risks were discussed including possibility of spinal headache. Informed consent was obta ined. Overlying skin is cleansed with Betadine. Lidocaine is used as anesthetic. Several attempts were made under fluoroscopic guidance to access spinal canal at a few levels. There is finally successful acce ss at the L3-L4 level using paraspinal approach. There is poor flow of clear CSF and ordering physician requires or request at least 10 to 15 cc of CS F. Several attempts at repositioning and coughing were unsuccessful in improved CSF flow. At this poi nt, tiny amount of bleeding was noted with repositioning. There was finally improved CSF flow with tu rning patient on side. Successful amount of fluid was collected and the needle was withdrawn. Post pr ocedure instructions completed. Patient tolerated procedure well without any immediate complication. Patient was sent back to floor f or further monitoring. IMPRESSION: As Above.
--- NOTE | 2020-09-23 13:31 | P.PN ---
Subjective Progress Note Date: 09/23/20 The patient was seen at bedside and he stated he feels somewhat better today compared to to his initial presentation he feels like his sensation in the hand he felt he had more sensation that that he noticed yesterday compared to his initial presentation. Otherwise he denies any new weakness, any worsening of his numbness tingling and the hands or feet, denies any diplopia, any slurring the speech, any difficulty swallowing. Patient just got back from a lumbar puncture procedure. Patient state stated that about 2-3 weeks ago over the left axilla and the left the lateral side of his chest which was then healing. Then in the last 1-1-1/2 weeks ago he started having numbness of the the hands then later it was a atrophy bilaterally. He does feel like his hands are and feet are weak compared to what he usually feels like. Objective - Vital Signs Vital signs: Vital Signs Temp 97.5 F L 09/23/20 03:00 Pulse 106 H 09/23/20 12:15 Resp 18 09/23/20 12:15 BP 130/92 09/23/20 12:15 Pulse Ox 95 09/23/20 12:15 Intake & Output 09/22/20 09/23/20 09/23/20 18:59 06:59 18:59 Intake Total 960 240 480 Balance 960 240 480 Intake: Oral 960 240 480 Other: Voiding Method Toilet Toilet # Voids 6 2 0 - Exam General: Patient the is lying in bed and not in acute distress. Patient does has rash in the groin region, which does not appear typically a herpetic rash. Neurology: Higher mental function: The patient is awake alert oriented to self place and ti me. Follow simple and complex with the commands. No aphasia and no neglect. Cranial nerves: The pupils are round equal about 4 mm bilaterally and reactive to light symmetrically. Extraocular movement is intact and no nystagmus is noted throughout. Normal facial sensation to touch throughout. No facial weakness throughout. No dysarthria. Tongue protrudes to the central and moved [id number] without any difficulty. Normal shoulder shrug bilaterally. Motor: Gait is deferred since the patient just recently got back from a lumbar puncture and he has to lie still for about an hour. The strength: Right hand interosseous is 5 minus while the rest of the bilateral upper extremities 5 out of 5. Lower extremities was hard to assess because of patient recent the lumbar puncture but his ankles were normal bilaterally. No spontaneous movements noted. Normal tone and bulk. Cerebellar: Normal finger to nose bilaterally. No ataxia no dysmetria. Sensation is normal to touch throughout. Reflexes (right/left): biceps 0/0, brachioradialis trace/0, knee 1/1, ankle trace/trace Plantars are mute bilaterally. - Labs CBC & Chem 7: 09/19/20 17:36 09/19/20 17:36 Labs: Abnormal Lab Results - Last 24 Hours (Table) 09/23/20 Range/Units 10:08 CSF Total Protein 270 H (12-60) mg/dL Assessment and Plan Assessment: 45-year-old male who had suffered from COVID-19 with minor symptoms 6 weeks ago, recovered very well, subsequently developed shingles over left T2 dermatome 2 weeks ago and now has developed progressive paresthesias in bilateral upper limbs with Lhermitte symptoms and subjective weakness in the legs since last 1 week. Examination revealed mild weakness of right upper limb in the deltoid and interossei, with numbness in the left T1-T2 dermatome. At present examination does not reveal significant myelopathy. 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 CSF clear, colorless, 4 nucleated cells, 9 rbc and 270 protiens ). Yes diabetes can give you elevated protein but I don't think his diabetes is that the bad for the proteins to be this elevated. * New onset diabetes * Hypertension * Obesity Plan: * STARTED the patient and IVIG 2 g per take over this next 3 days. X line START PHYSICAL THERAPY AND OCCUPATION THERAPY. If the patient condition worsens I recommend the patient to be transferred to ICU. * I ordered IgA level. * Recommend cardiac monitoring. * Recommend the EMG with nerve conduction study as an outpatient. * Regarding the patient's shingles the patient is on valacyclovir 1000 mg 1 tabl et 3 times a day. * MRI of the brain on 09/22/2020 is reported as negative MRI scan of the brain. * MRI of the cervical spine is reported as mild posterior disc bulge at the C5- C6 and C6-C7. Mild right side C5-C6 neural foraminal impingement. No fracture. No spinal stenosis. * Neurochecks every 4 hours. * The plan was discussed with the patient as well as with the primary team. Time with Patient: Greater than 30
[2020-09-23] MEDS ORDERED: IMMUNE GLOBULIN (GAMMAGARD) 20 GM in EMPTY BAG 1 BAG IV ONE (15:00)
[2020-09-23] MEDS ORDERED: IMMUNE GLOBULIN (GAMMAGARD) 30 GM in EMPTY BAG 1 BAG IV ONE (15:00)
[2020-09-23] MEDS: ACETAMINOPHEN TAB 325 MG TAB PO PRN (16:16)
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
[2020-09-23] MEDS: ATORVASTATIN 10 MG TAB PO SCH (21:09)
[2020-09-24 03:59] VITALS: RESP 18
[2020-09-24] MEDS: amLODIPine 10 MG TAB PO SCH (08:11)
[2020-09-24] MEDS: METOPROLOL TARTRATE 25 MG TAB PO SCH ×3 (08:11→22:41)
[2020-09-24] MEDS: MULTIVITAMINS, THERA 1 EACH TAB PO SCH (08:11)
[2020-09-24] MEDS: lisinopriL 20 MG TAB PO SCH ×2 (08:11→22:42)
[2020-09-24] MEDS: ASPIRIN 81 MG PO SCH (08:12)
[2020-09-24] MEDS: CLOTRIMAZOLE 1% CREAM 15 GM TUBE TOPICAL SCH (08:12)
[2020-09-24] MEDS: valACYclovir HCL 1,000 MG TABLET PO SCH ×3 (08:12→22:42)
[2020-09-24] MEDS ORDERED: IMMUNE GLOBULIN (GAMMAGARD) 20 GM in EMPTY BAG 1 BAG IV ONE (15:00)
[2020-09-24] MEDS ORDERED: IMMUNE GLOBULIN (GAMMAGARD) 30 GM in EMPTY BAG 1 BAG IV ONE (15:00)
--- NOTE | 2020-09-24 16:38 | P.PN ---
Subjective Progress Note Date: 09/24/20 She was seen at bedside and that he stated that the he's doing somewhat better today compared to his initial presentation. He feels like he has more strength today but continues to feel like his strength is not back to normal as well as some numbness in the hands and feet but again he feels that he is improving compared to his initial presentation. History the patient was started on IVIG and today is day 2. Objective - Vital Signs Vital signs: Vital Signs Temp 97.9 F 09/24/20 09:00 Pulse 126 H 09/24/20 09:00 Resp 18 09/24/20 09:00 BP 118/94 09/24/20 09:00 Pulse Ox 96 09/24/20 09:00 Intake & Output 09/23/20 09/24/20 09/24/20 18:59 06:59 18:59 Intake Total 1653.333 Balance 1653.333 Intake: Intake, IV Titration 93.333 Amount Immune Globulin ( 93.333 Gammagard) 30 gm In Empty Bag 1 bag @ Per Protocol IV .Q0M ONE Rx#: [id number] Oral 1560 Other: Voiding Method Toilet Toilet # Voids 1 2 - Exam General: Patient the is lying in bed and not in acute distress. Patient does has rash in the groin region, which does not appear typically a herpetic rash. Neurology: Higher mental function: The patient is awake alert oriented to self place and time. Follow simple and complex with the commands. No aphasia and no neglect. Cranial nerves: The pupils are round equal about 4 mm bilaterally and reactive to light symmetrically. Extraocular movement is intact and no nystagmus is noted throughout. Normal facial sensation to touch throughout. No facial weakness throughout. No dysarthria. Tongue protrudes to the central and moved [id number] without any difficulty. Normal shoulder shrug bilaterally. Motor: Gait: Initially he was walking normal with normal arm swings but when he turned he felt somewhat unsteady. The strength is 5 out of 5 throughout. No spontaneous movements noted. Normal tone and bulk. Cerebellar: Normal finger to nose bilaterally. No ataxia no dysmetria. Sensation is normal to touch throughout. Reflexes (right/left): biceps 0/0, brachioradialis trace/0, knee 1/1, ankle trace/trace Plantars are mute bilaterally. - Labs CBC & Chem 7: 09/19/20 17:36 09/19/20 17:36 Labs: Microbiology - Last 24 Hours (Table) 09/23/20 10:08 CSF Gram Stain - Preliminary Cerebral Spinal Fluid CSF Culture - Preliminary Assessment and Plan Assessment: 45-year-old male who had suffered from COVID-19 with minor symptoms 6 weeks ago, recovered very well, subsequently developed shingles over left T2 dermatome 2 weeks ago and now has developed progressive paresthesias in bilateral upper limbs with Lhermitte symptoms and subjective weakness in the legs since last 1 week. Examination revealed mild weakness of right upper limb in the deltoid and interossei, with numbness in the left T1-T2 dermatome. At present examination does not reveal significant myelopathy. 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 CSF clear, colorless, 4 nucleated cells, 9 rbc and 270 protiens). Yes diabetes can give you elevated protein but I don't think his diabetes is that the bad for the proteins to be this elevated. * New onset diabetes * Hypertension * Obesity Plan: * STARTED the patient and IVIG 2 g per take over this next 3 days (today is day#2/3). X line START PHYSICAL THERAPY AND OCCUPATION THERAPY. If the patient condition worsens I recommend the patient to be transferred to ICU. * IgA level: 282 (normal). * Recommend cardiac monitoring. * Regarding the patient's shingles the patient is on valacyclovir 1000 mg 1 tablet 3 times a day. * MRI of the brain on 09/22/2020 is reported as negative MRI scan of the brain. * MRI of the cervical spine is reported as mild posterior disc bulge at the C5- C6 and C6-C7. Mild right side C5-C6 neural foraminal impingement. No fracture. No spinal stenosis. * Neurochecks every 4 hours. * The patient was notified upon discharge needs to follow-up with a neurologist within 1-2 weeks the the. Recommend the EMG with nerve conduction study as an outpatient. * The plan was discussed with the patient as well as well his nurse. Dr. Martin is covering neurology service over this weekend. Time with Patient: Less than 30
--- NOTE | 2020-09-24 22:29 | P.PN ---
Progress Note - Text Progress Note Date: 09/24/20 Chief Complaint: weakness in the arms and legs History of presenting complaint: This is a pleasant 45-year-old patient of Dr. Decker. Patient noticed numbness and weakness in both the arms and some weakness for about 5 days. Also felt like slightly weak and heavy. No fever no chills. No change in bowel or urinary habit. Patient many years ago did have neck fracture. He also has had some discomfort in the upper back. He did test positive for COVID was 6 weeks ago. But just now he's had some loss of taste and smell. No fever no chills. No respiratory symptoms. Patient's is present with him in the room. No headache or double vision. Patient also had developed what he described as a rash on the left chest wall. Question about it being shingles. Initial concern is about; cervical myelopathy. To rule out a central cause MRI of the brain was ordered. Patient also has unexplained sinus tachycardia. Cervical spine MRI did not show any spinal cord involvement. Had a lumbar puncture- CSF fluid came back showing elevated protein of 270. 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 Started on IV immunoglobulin Today-feeling a bit better. Seen by PT OT. Doing much better. Review of systems: Was done for constitutional, cardiovascular, GI, pulmonary. Neurological relevant finding as above Active Medications Acetaminophen (Acetaminophen Tab 325 Mg Tab) 650 mg PO Q6HR PRN PRN Reason: Fever and/ or Pain Last Admin: 09/23/20 16:16 Dose: 650 mg Documented by: Amlodipine Besylate (Amlodipine 10 Mg Tab) 10 mg PO DAILY [facility] Last Admin: 09/24/20 08:11 Dose: 10 mg Documented by: Aspirin (Aspirin 81 Mg) 81 mg PO DAILY [facility] Last Admin: 09/24/20 08:12 Dose: Not Given Documented by: Atorvastatin Calcium (Atorvastatin 10 Mg Tab) 10 mg PO HS [facility] Last Admin: 09/23/20 21:09 Dose: 10 mg Documented by: Clotrimazole (Clotrimazole 1% Cream 15 Gm Tube) 1 applic TOPICAL DAILY [facility] Last Admin: 09/24/20 08:12 Dose: Not Given Documented by: Immune Globulin 30 gm/ IV (Solution) 300 mls @ 0 mls/hr IV .Q0M ONE; Protocol Stop: 09/25/20 15:01 Immune Globulin 20 gm/ IV (Solution) 200 mls @ 0 mls/hr IV .Q0M ONE; Protocol Stop: 09/25/20 15:01 Ibuprofen (Ibuprofen 600 Mg Tab) 600 mg PO QID PRN PRN Reason: Pain Last Admin: 09/21/20 21:43 Dose: 600 mg Documented by: Lisinopril (Lisinopril 20 Mg Tab) 20 mg PO BID [facility] Last Admin: 09/24/20 08:11 Dose: 20 mg Documented by: Lorazepam (Lorazepam 1 Mg Tab) 1 mg PO Q6HR PRN PRN Reason: Anxiety Last Admin: 09/20/20 01:32 Dose: 1 mg Documented by: Metoprolol Tartrate (Metoprolol Tartrate 25 Mg Tab) 25 mg PO TID [facility] Last Admin: 09/24/20 15:34 Dose: 25 mg Documented by: Multivitamins (Multivitamins, Thera 1 Each Tab) 1 each PO DAILY [facility] Last Admin: 09/24/20 08:11 Dose: 1 each Documented by: Naloxone HCl (Naloxone 0.4 Mg/Ml 1 Ml Vial) 0.2 mg IV Q2M PRN PRN Reason: Opioid Reversal Valacyclovir HCl (Valacyclovir Hcl 1,000 Mg Tablet) 1,000 mg PO TID [facility] Last Admin: 09/24/20 15:35 Dose: 1,000 mg Documented by: Physical examination: VITAL SIGNS: 37 9, 120, 18, 118/94, 96% room air GENERAL: , Sitting up, comfortable. EYES: Pupils equal. Conjunctiva normal. NECK: JVD not raised; masses not palpable. HEART: First and second heart sounds are normal; no edema. LUNGS: Respiratory rate normal; clear auscultation. ABDOMEN: Soft, nontender, liver spleen not palpable, no masses palpable. PSYCH: Alert and oriented x3; mood and affect normal. NEUROLOGICAL: Cranial nerves grossly intact; no facial asymmetry, very slight decrease in power and sensation in the limbs. INVESTIGATIONS, reviewed in the clinical context: CSF fluid-nucleated cells 4 total protein 270 Brain MRI-unremarkable Cervical spine MRI-mild posterior disc bulging at C5-C6 and C6-C7. Mild right- sided C5-C6 neural foraminal impingement. Cervical spinal cord has normal signal pattern. Cervical spine CT-RT level spondylolisthesis and DJD changes. Thoracic spine x-ray-mild DJD changes. EKG tracing personally reviewed by me-normal sinus rhythm Chest x-ray film personally reviewed by me-no infiltrates 2-D echocardiogram-EF 60-65% Coronavirus P/Cr-not detected Assessment: -Acute Guillian-Winona syndrome-getting IV immunoglobulin. PTOT. -Essential hypertension -Hyperlipidemia -Obesity BMI 33.2 -Possible herpes zoster in the left chest wall. on Valtrex and -sinus tachycardia Plan: Patient is to get 3 days of IV immunoglobulin. PTOT to continue. Patient doing well. Discussed.
[2020-09-24] MEDS: ATORVASTATIN 10 MG TAB PO SCH (22:42)
[2020-09-25 06:24] VITALS: BP 138/93; PULSE 117; TEMP 97.7
[2020-09-25] MEDS: CLOTRIMAZOLE 1% CREAM 15 GM TUBE TOPICAL SCH (09:00)
[2020-09-25] MEDS: amLODIPine 10 MG TAB PO SCH (09:00)
[2020-09-25] MEDS: lisinopriL 20 MG TAB PO SCH (09:42)
[2020-09-25] MEDS: ASPIRIN 81 MG PO SCH (09:42)
[2020-09-25] MEDS: METOPROLOL TARTRATE 25 MG TAB PO SCH ×2 (09:42→17:30)
[2020-09-25] MEDS: MULTIVITAMINS, THERA 1 EACH TAB PO SCH (09:42)
[2020-09-25] MEDS: valACYclovir HCL 1,000 MG TABLET PO SCH ×2 (09:43→17:32)
[2020-09-25] MEDS ORDERED: LACTULOSE 20 GM/30 ML CUP PO ONE (13:06)
[2020-09-25] MEDS ORDERED: IMMUNE GLOBULIN (GAMMAGARD) 30 GM in EMPTY BAG 1 BAG IV ONE (15:00)
[2020-09-25] MEDS ORDERED: IMMUNE GLOBULIN (GAMMAGARD) 20 GM in EMPTY BAG 1 BAG IV ONE (15:00)
[2020-09-25] MEDS ORDERED: IMMUNE GLOBULIN (GAMMAGARD) 10 GM in EMPTY BAG 1 BAG IV ONE (18:30)
[2020-09-25] MEDS ORDERED: IMMUNE GLOBULIN (GAMMAGARD) 5 GM in EMPTY BAG 1 BAG IV ONE (18:30)
--- NOTE | 2020-09-25 21:15 | P.DS ---
Providers Date of admission: 09/22/20 07:59 Expected date of discharge: 09/25/20 Attending physician: Faustino Hickman Consults: 09/20/20 13:47 Consult Physician Routine Consulting Provider: Duong Ann Consult Reason/Comments: weakness arms legs Do you want consulting provider notified?: Yes 09/20/20 13:49 Consult Physician Routine Consulting Provider: Devika North Consult Reason/Comments: arm leg weakness/upper back pain Do you want consulting provider notified?: Yes Primary care physician: [facility] Course: Chief Complaint: weakness in the arms and legs History of presenting complaint: This is a pleasant 45-year-old patient of Dr. Decker. Patient noticed numbness and weakness in both the arms and some weakness for about 5 days. Also felt like slightly weak and heavy. No fever no chills. No change in bowel or urinary habit. Patient many years ago did have neck fracture. He also has had some discomfort in the upper back. He did test positive for COVID was 6 weeks ago. But just now he's had some loss of taste and smell. No fever no chills. No respiratory symptoms. Patient's is present with him in the room. No headache or double vision. Patient also had developed what he described as a rash on the left chest wall. Question about it being shingles. Initial concern is about; cervical myelopathy. To rule out a central cause MRI of the brain was ordered. Patient also has unexplained sinus tachycardia. Cervical spine MRI did not show any spinal cord involvement. Had a lumbar puncture- CSF fluid came back showing elevated protein of 270. 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 Started on IV immunoglobulin-C3 day course. Today-weakness numbness in the limbs, better. Discussed with the patient. Will be going home tonight. He follow with neurology. Consultation: Dr. Maddox and Dr. Urena from neurology Dr. Loza from cardiology Physical examination: VITAL SIGNS: 97.7, 117, 18, 138.93, 96% room air GENERAL: , Sitting up, comfortable. EYES: Pupils equal. Conjunctiva normal. NECK: JVD not raised; masses not palpable. HEART: First and second heart sounds are normal; no edema. LUNGS: Respiratory rate normal; clear auscultation. ABDOMEN: Soft, nontender, liver spleen not palpable, no masses palpable. PSYCH: Alert and oriented x3; mood and affect normal. NEUROLOGICAL: Cranial nerves grossly intact; no facial asymmetry, very slight decrease in power and sensation in the limbs. INVESTIGATIONS, reviewed in the clinical context: CSF fluid-nucleated cells 4 total protein 270 Brain MRI-unremarkable Cervical spine MRI-mild posterior disc bulging at C5-C6 and C6-C7. Mild right- sided C5-C6 neural foraminal impingement. Cervical spinal cord has normal signal pattern. Cervical spine CT-RT level spondylolisthesis and DJD changes. Thoracic spine x-ray-mild DJD changes. EKG tracing personally reviewed by me-normal sinus rhythm Chest x-ray film personally reviewed by me-no infiltrates 2-D echocardiogram-EF 60-65% Coronavirus P/Cr-not detected Assessment: -Acute Guillian-[place] syndrome-getting IV immunoglobulin. PTOT. -Essential hypertension -Hyperlipidemia -Obesity BMI 33.2 -Possible herpes zoster in the left chest wall. on Valtrex and -sinus tachycardia Disposition: Home Patient Condition at Discharge: Stable Plan - Discharge Summary New Discharge Prescriptions: New Atorvastatin [Lipitor] 10 mg PO HS #30 tab valACYclovir HCL [Valtrex] 1,000 mg PO TID #15 tablet Metoprolol Tartrate [Lopressor] 50 mg PO BID #60 tab Continue Multivitamins, Thera [Multivitamin (formulary)] 1 tab PO DAILY LORazepam [Ativan] 0.5 - 1 mg PO TID PRN PRN Reason: Anxiety Ketoconazole 2% Cream [Nizoral 2%] 1 applic TOPICAL DAILY Enalapril [Vasotec] 10 mg PO BID Discontinued Simvastatin [Zocor] 20 mg PO HS Discharge Medication List Enalapril [Vasotec] 10 mg PO BID 09/19/20 [History] Ketoconazole 2% Cream [Nizoral 2%] 1 applic TOPICAL DAILY 09/19/20 [History] LORazepam [Ativan] 0.5 - 1 mg PO TID PRN 09/19/20 [History] Multivitamins, Thera [Multivitamin (formulary)] 1 tab PO DAILY 09/19/20 [History] Atorvastatin [Lipitor] 10 mg PO HS #30 tab 09/25/20 [Rx] Metoprolol Tartrate [Lopressor] 50 mg PO BID #60 tab 09/25/20 [Rx] valACYclovir HCL [Valtrex] 1,000 mg PO TID #15 tablet 09/25/20 [Rx] Follow up Appointment(s)/Referral(s): Roberto Dekcer MD [Primary Care Provider] - 3 Days Cliff Alexander PAC [PHYSICIAN ROUTER OPERATOR PIN] - 4 Weeks Maura Rizvi MD [Medical Doctor] - 1 Week Patient Instructions/Handouts: Shingles (DC), Guillain-[place] Syndrome (DC) Discharge/Stand Alone Forms: Work/School Release / Restrict
== END 2020-09-25 20:32 | disposition home or self-care (01) | DRG 95 ==
LOC: EC 16:34 → 1SOBS 19:18 → OBSVTOIN 09-22 07:59
PROVIDERS: ADMIT Hospitalist; ATTEND Hospitalist
PROC: 009U3ZX Drainage of Spinal Canal, Percutaneous Approach, Diagnostic (ICD-10-PCS; principal; 2020-09-23)
PROC: B01B1ZZ Fluoroscopy of Spinal Cord using Low Osmolar Contrast (ICD-10-PCS; principal; 2020-09-23)
DX: G61.0 Guillain-Barre syndrome (principal); M50.023 Cervical disc disorder at C6-C7 level with myelopathy; M50.022 Cervical disc disorder at C5-C6 level with myelopathy; M50.01 Cervical disc disorder with myelopathy, high cervical region; M51.06 Intervertebral disc disorders with myelopathy, lumbar region; M43.12 Spondylolisthesis, cervical region; M50.122 Cervical disc disorder at C5-C6 level with radiculopathy; M50.11 Cervical disc disorder with radiculopathy, high cervical region; E11.9 Type 2 diabetes mellitus without complications; B94.8 Sequelae of other specified infectious and parasitic diseases; M47.22 Other spondylosis with radiculopathy, cervical region; Z20.828 Contact with and (suspected) exposure to other viral communicable diseases; R00.0 Tachycardia, unspecified; B02.9 Zoster without complications; M50.123 Cervical disc disorder at C6-C7 level with radiculopathy; I37.1 Nonrheumatic pulmonary valve insufficiency; H54.61 Unqualified visual loss, right eye, normal vision left eye; R20.2 Paresthesia of skin; I10 Essential (primary) hypertension; E66.9 Obesity, unspecified; E78.5 Hyperlipidemia, unspecified; F41.9 Anxiety disorder, unspecified; Z68.33 Body mass index [BMI] 33.0-33.9, adult; Z87.891 Personal history of nicotine dependence; Z98.890 Other specified postprocedural states
CPT/HCPCS: 36415; 62328; 70030; 70551; 71046; 72052; 72070; 72125; 72156; 80053; 82164; 82607; 82746; 82784; 83036; 83735; 84157; 84443; 84484; 85025; 85379; 85610; 85730; 87070; 87205; 87252; 87496; 87498; 87529; 87635; 87798; 88108; 89050; 93005; 93306; 94760; 96361; 96374; 99285

== ENCOUNTER → 2022-08-28 | Outpatient (CLI) | payer BC ==
--- NOTE | 2022-08-28 08:13 | US ---
EXAMINATION TYPE: US gallbladder DATE OF EXAM: 08/28/2022 COMPARISON: NONE CLINICAL HISTORY: K82.4 CHOLESTEROLOSIS OF GALLBLADDER. h/o possible polyps, no symptoms TECHNIQUE: Multiple sonographic images of the right upper quadrant are obtained. FINDINGS: EXAM MEASUREMENTS: Liver Length: 15.5 cm Gallbladder Wall: 0.2 cm CBD: 0.6 cm Right Kidney: 10.8 x 5.2 x 5.2 cm TERMINAL SUPERVISOR NOTES:interecostal liver imaging due to bowel gas Pancreas: wnl Liver: Increased attenuation. Gallbladder: no polyps seen at this time Evidence for sonographic Soto's sign: no CBD: wnl Right Kidney: wnl Visualized pancreas within normal limits. Visualized liver heterogeneously hyperechoic Evaluation for focal masses suboptimal due to the heterogeneity. Gallbladder seen without shadowing m obile gallstones. No nonmobile nonshadowing hyperechoic foci to suggest polyp. No right-sided hydron ephrosis. IMPRESSION: Gallbladder currently within normal limits. Fatty infiltrative hepatocellular disease is felt present. Correlate clinically and with liver lab values.
== END | disposition home or self-care (01) ==
LOC: RADUSWWP 07:25
PROVIDERS: ATTEND Surgery
DX: K76.0 Fatty (change of) liver, not elsewhere classified (principal)
CPT/HCPCS: 76705

== ENCOUNTER → 2024-09-01 | Outpatient (CLI) | payer BC ==
--- NOTE | 2024-09-01 13:17 | XR ---
EXAMINATION TYPE: XR finger RT DATE OF EXAM: 09/01/2024 1:02 PM INDICATION: Patient age:Male; 49 years old; Reason for study: S62.600A FRACTURE OF UNSP PHALANX OF RIGHT INDEX F; PHH. COMPARISON: None TECHNIQUE: Frontal, lateral and oblique views of the second digit of the right hand were obtained. FINDINGS: There is tiny osseous fragment along the palmar proximal aspect of the middle phalanx of th e second digit only appreciated on the lateral view. No radiopaque foreign body. There is small soft tissue defect along the lateral aspect of the second digit at the PIP joint with some surrounding sof t tissue swelling. IMPRESSION: 1. Tiny osseous fragment along the proximal aspect of the middle phalanx near the PIP joint on the l ateral view. May represent an avulsion fracture. 2. Soft tissue edema with small laceration along the lateral aspect of the second digit overlying th e PIP joint. No radiopaque foreign body. [facility], , 09/01/2024 1:15 PM
== END | disposition home or self-care (01) ==
LOC: RADXRMAIN 12:50
PROVIDERS: ATTEND Family Medicine
DX: S62.600A Fracture of unspecified phalanx of right index finger, initial encounter for closed fracture (principal); R60.0 Localized edema